=== PATIENT | female | born 1990 | race Asian ===

== ENCOUNTER 2018-01-08 02:47 | Emergency (ER) | payer OTHER ==
[~2018-01-08] VITALS: Ht 154.9 cm; Wt 61.0 kg
[2018-01-08] MEDS ORDERED: ONDANSETRON ODT 4 MG ONE (03:18)
[2018-01-08] MEDS ORDERED: KETOROLAC 30 MG/1 ML ONE (03:18)
[2018-01-08] MEDS ORDERED: KETOROLAC 30 MG/1 ML IM ONE (03:30)
[2018-01-08] MEDS ORDERED: ONDANSETRON ODT 4 MG PO ONE (03:30)
[2018-01-08 03:31] LABS: MEAN CORPUSCULAR HEMOGLOBIN 29.6 pg (27.0-34.8); MEAN CORPUSCULAR HGB CONC 34.1 g/dL (32.4-35.8); MEAN CORPUSCULAR VOLUME 86.8 fL (80-100); MEAN PLATELET VOLUME 7.3 fL (7.4-10.4); PLATELET COUNT 304 x10^3/uL (130-400); RED BLOOD COUNT 4.17 x10^6/uL (3.82-5.3); RED CELL DISTRIBUTION WIDTH 11.8 % (9.6-15.2)
[2018-01-08 03:40] LABS: ALANINE AMINOTRANSFERASE 19 U/L (12-78); ALBUMIN 3.4 g/dL (3.4-5.0); ANION GAP 8 mmol/L (5-15); CALCIUM 7.8 mg/dL (8.5-10.1); CHLORIDE 107 mmol/L (98-107); CREATININE 0.62 mg/dL (0.55-1.02)
[2018-01-08 03:44] LABS: ALKALINE PHOSPHATASE 49 U/L (45-117); BILIRUBIN,TOTAL 0.3 mg/dL (0.2-1.0); TOTAL PROTEIN 7.2 g/dL (6.4-8.2)
[2018-01-08 03:52] LABS: BASOPHILS # (AUTO) 0.04 x10^3/uL (0-0.1); BASOPHILS % (AUTO) 0 % (0-1); EOSINOPHILS # (AUTO) 0.37 x10^3/uL (0-0.4); EOSINOPHILS % (AUTO) 2 % (1-7); LYMPHOCYTES # (AUTO) 2.38 x10^3/uL (1-3.4); LYMPHOCYTES % (AUTO) 13 % (22-44); MD SCAN; MONOCYTES # (AUTO) 1.02 x10^3/uL (0.2-0.8); MONOCYTES % (AUTO) 6 % (2-9); NEUTROPHILS # (AUTO) 14.44 x10^3/uL (1.8-6.8); NEUTROPHILS % (AUTO) 79 % (42-75)
[2018-01-08] MEDS ORDERED: MORPHINE SULFATE 4 MG/ML, 1ML ONE (04:00)
[2018-01-08] MEDS ORDERED: ONDANSETRON 2MG/ML, 2ML IVPush ONE (04:00)
[2018-01-08] MEDS ORDERED: MORPHINE SULFATE 4 MG/ML, 1ML IVPush PRN (04:00)
[2018-01-08 05:03] LABS: MICROSCOPIC AUTO
[2018-01-08 05:04] LABS: CULTURE INDICATED? NO
[2018-01-08 05:36] VITALS: BP 108/69
[2018-01-08] MEDS ORDERED: CEFDINIR 125 MG/5 ML, ORAL SUSP ONE (06:04)
== END 2018-01-08 06:27 | disposition home or self-care (01) ==
LOC: ED 06:21
DX: N20.1 Calculus of ureter (principal)
CPT/HCPCS: 36415; 74177; 76700; 76856; 80053; 81001; 84703; 85025; 96372; 99285; J1885; Q0162